=== PATIENT | female | born 1995 | race Caucasian/White ===

== ENCOUNTER 2020-05-03 18:33 | Emergency (ER) | payer OTHER ==
[~2020-05-03 18:33] MED LIST: ASPIR-LOW81 MG PO; ASPIRIN CHEWABL81 MG PO; ASPIRIN EC81 MG PO; COLACE100 MG PO; DECADRON6 MG PO; ELIQUIS5 M1 PO; GLUCOPHAGE 500500 MG PO; IBU600 MG PO; NEXIUM20 MG PO; NORCO 5-325 TA1 EACH PO; PRENATABS FA T1 EACH PO; PRENATAL VITAMIN PO; PROVENTIL HFA6.7 GM INH; VITAMIN B-625 MG PO; ZANTAC 150 MG150 MG PO
[2020-05-03 19:42] LABS: HEMOGLOBIN 11.1 gm/dl (12.3-15.3); RED BLOOD COUNT 4.16 M/UL (4.00-5.10); WHITE BLOOD COUNT 12.2 K/UL (4.5-11.0)
[2020-05-03 20:26] LABS: BUN/CREATININE RATIO 15 (0-10)
== END 2020-05-03 21:19 | disposition home or self-care (01) ==
LOC: ER1 18:33
PROVIDERS: Family Medicine
DX: O99.891 Other specified diseases and conditions complicating pregnancy (principal); R07.9 Chest pain, unspecified; O98.511 Other viral diseases complicating pregnancy, first trimester; U07.1 COVID-19; Z86.711 Personal history of pulmonary embolism; Z79.01 Long term (current) use of anticoagulants; Z3A.01 Less than 8 weeks gestation of pregnancy
CPT/HCPCS: 80053; 82550; 82553; 83874; 84484; 85025; 85379; 85610; 85730; 93005; 99285

== ENCOUNTER → 2020-05-15 | Outpatient (CLI) | payer OTHER | LOC: KOH-I 05-14 13:00 | DX: M79.601 Pain in right arm (principal) | CPT/HCPCS: 93970 ==

== ENCOUNTER 2021-01-24 19:23 | Emergency (ER) | payer OTHER ==
[2021-01-24 21:10] LABS: HEMOGLOBIN 11.7 gm/dl (12.3-15.3); RED BLOOD COUNT 3.89 M/UL (4.00-5.10); WHITE BLOOD COUNT 8.9 K/UL (4.5-11.0)
[2021-01-24 21:25] LABS: BUN/CREATININE RATIO 17 (0-10)
== END 2021-01-25 00:30 | disposition home or self-care (01) ==
LOC: ER1 19:23
PROVIDERS: Student in an Organized Health Care Education/Training Program
DX: M25.512 Pain in left shoulder (principal); R06.00 Dyspnea, unspecified; Z88.0 Allergy status to penicillin; Z88.8 Allergy status to other drugs, medicaments and biological substances
CPT/HCPCS: 80053; 83880; 84484; 85025; 93005; 99285; Q9967

== ENCOUNTER 2021-03-09 18:43 | Emergency (ER) | payer OTHER ==
[2021-03-09 19:59] LABS: HEMOGLOBIN 12.4 gm/dl (12.3-15.3); RED BLOOD COUNT 4.17 M/UL (4.00-5.10); WHITE BLOOD COUNT 6.8 K/UL (4.5-11.0)
[2021-03-09 20:10] LABS: BUN/CREATININE RATIO 17 (0-10)
[2021-03-09 20:52] LABS: BORDETELLA PARAPERTUSSIS Not Detected (Not Detectd); BORDETELLA PERTUSSIS Not Detected (Not Detectd); CHLAMYDIA PNEUMONIAE Not Detected (Not Detectd); CORONAVIRUS HKU1 Not Detected (Not Detectd); CORONAVIRUS NL63 Not Detected (Not Detectd); CORONAVIRUS OC43 Not Detected (Not Detectd); CORONOAVIRUS 229E Not Detected (Not Detectd); HUMAN METAPNEUMOVIRUS Not Detected (Not Detectd); INFLUENZA A Not Detected (Not Detectd); INFLUENZA B Not Detected (Not Detectd); MYCOPLASMA PNEUMONIAE Not Detected (Not Detectd); PARAINFLUENZA VIRUS 1 Not Detected (Not Detectd); PARAINFLUENZA VIRUS 2 Not Detected (Not Detectd); PARAINFLUENZA VIRUS 3 Not Detected (Not Detectd); PARAINFLUENZA VIRUS 4 Not Detected (Not Detectd); RESPIRATORY SYNCYTIAL VIRUS Not Detected (Not Detectd)
[2021-03-09 21:56] LABS: HUMAN RHINOVIRUS/ENTEROVIRUS DETECTED (Not Detectd); SARS-CoV-2 NOT DETECTED (Not Detectd)
[2021-03-09] MEDS ORDERED: ZOFRAN4 MG PO (22:00)
== END 2021-03-09 22:09 | disposition home or self-care (01) ==
LOC: ER1 18:43
PROVIDERS: Nurse Practitioner
DX: R11.0 Nausea (principal); B97.89 Other viral agents as the cause of diseases classified elsewhere; R52 Pain, unspecified; K21.9 Gastro-esophageal reflux disease without esophagitis; Z20.822 Contact with and (suspected) exposure to COVID-19; Z88.0 Allergy status to penicillin; Z79.01 Long term (current) use of anticoagulants
CPT/HCPCS: 71045; 80053; 81001; 85025; 85379; 85610; 87633; 96374; 99284; J2405; Q9967